=== PATIENT | female | born 1965 | race Caucasian/White ===

== ENCOUNTER 2019-01-08 17:04 | Inpatient (IN) | payer BC ==
[~2019-01-08] VITALS: Ht 167.6 cm; Wt 97.0 kg
[~2019-01-08 17:04] MED LIST: AMLO5TAB13 PO; ATEN50TA PO; DICY10CA12 PO; FARXIGA PO; GABA-339 PO; GLIP-115 PO; MELO1TAB56 PO; OMEP20CA74 PO; SITA100T7 PO; TRAM50TA2 PO
[2019-01-08 17:42] LABS: Urine Bacteria NONE SEEN /hpf (None Seen); Urine Blood TRACE /uL (Negative); Urine Specific Gravity 1.033 (1.001-1.035); Urine WBC 1 /hpf (0 - 5)
[2019-01-08 17:58] LABS: Basophils # (auto) 0 uL; Basophils % (auto) 0.3 % (0.0-2.0); Eosinophils # (auto) 0 uL; Eosinophils % (auto) 0.2 % (0.0-7.0); Hemoglobin 16.5 g/dL (12.2-16.2); Lymphocytes # (auto) 2.2 uL; Mean Corpuscular Volume 90.7 fL (80.0-100.0); Monocytes # (auto) 1.2 uL; Monocytes % (auto) 11.5 % (0.0-12.0); Neutrophils # (auto) 6.9 uL; Nucleated Red Blood Cells % 0.1 %; Platelet Count (auto) 194 10^3/uL (140-450); Red Blood Cells 5.51 10^6/uL (4.0-5.20); White Blood Cell 10.2 10^3/uL (4.4-10.8)
[2019-01-08 18:15] LABS: Albumin 3.5 g/dL (3.4-5.0); Calcium 8.6 mg/dL (8.5-10.1); Potassium 3.9 mmol/L (3.5-5.1)
[2019-01-08 18:20] LABS: BUN/Creatinine Ratio 38.1; Bilirubin, Total 0.6 mg/dL (0.2-1.0); Total Protein 8.3 g/dL (6.4-8.2)
[2019-01-08] MEDS ORDERED: MORPHINE SULFATE 4 MG/ML SYR/VIAL IV ONE (18:45)
[2019-01-08] MEDS ORDERED: ONDANSETRON HCL 4 MG/2 ML VIAL IV ONE (18:45)
[2019-01-08] MEDS ORDERED: ACETAMINOPHEN 500 MG TAB PO PRN (20:30)
[2019-01-08] MEDS ORDERED: DEXTROSE (50%) 50ML SYRG IV PRN (21:00)
[2019-01-08] MEDS: MORPHINE SULF INJ 2 MG/ML SYRINGE 1ML IV PRN (21:30)
[2019-01-08] MEDS: GABAPENTIN 300 MG CAP PO SCH (22:00)
[2019-01-09] MEDS: ACCU-CHEK COMFORT CURVE STRIP VI SCH ×4 (00:04→18:19)
[2019-01-09] MEDS: InsuLIN REG 1unit/0.01ml Soln (100units/ml) SC SCH ×4 (00:13→18:00)
[2019-01-09] MEDS: GABAPENTIN 300 MG CAP PO SCH ×3 (06:00→21:02)
[2019-01-09] MEDS ORDERED: GASTROGRAFIN 120 ML SOL ONE (07:35)
[2019-01-09 08:05] LABS: Basophils # (auto) 0 uL; Basophils % (auto) 0.3 % (0.0-2.0); Eosinophils # (auto) 0.1 uL; Eosinophils % (auto) 1.2 % (0.0-7.0); Hematocrit 48.1 % (36.0-46.0); Hemoglobin 16.2 g/dL (12.2-16.2); Lymphocytes % (auto) 22.3 % (10.0-50.0); Mean Corpuscular Hemoglobin 30.4 pg (28.0-32.0); Mean Corpuscular Hgb Conc. 33.7 g/dL (32.0-36.0); Mean Corpuscular Volume 90.4 fL (80.0-100.0); Monocytes % (auto) 11.1 % (0.0-12.0); Neutrophils # (auto) 5.8 uL; Neutrophils % (auto) 65.1 % (37.0-80.0); Nucleated Red Blood Cells % 0.1 %; Platelet Count (auto) 151 10^3/uL (140-450); Red Blood Cells 5.32 10^6/uL (4.0-5.20); Red Cell Distribution Width 14.1 % (11.8-14.3)
[2019-01-09 08:11] LABS: BUN/Creatinine Ratio 51.9; Calcium 8.4 mg/dL (8.5-10.1); Potassium 3.8 mmol/L (3.5-5.1)
[2019-01-09] MEDS: cefTRIAXone 1GM/50ML D5W 50 ML IV SCH (09:14)
[2019-01-09] MEDS: ONDANSETRON HCL 4 MG/2 ML VIAL IV PRN ×3 (09:14→21:01)
[2019-01-09] MEDS ORDERED: PANTOPRAZOLE 40 MG/10 ML VIAL IV ONE (10:30)
[2019-01-09] MEDS: BENAZEPRIL HCL 10 MG TAB PO SCH (10:44)
[2019-01-09] MEDS: amLODIPine BESYLATE 5 MG TAB PO SCH (10:44)
[2019-01-09] MEDS: ATENOLOL 50 MG TAB PO SCH ×2 (10:46→21:09)
[2019-01-09] MEDS ORDERED: DOCUSATE SOD 100 MG CAP PO PRN (12:30)
[2019-01-09] MEDS ORDERED: LACTULOSE 20Gm/30ML SOLN PO PRN (12:30)
[2019-01-09] MEDS: SODIUM CHLORIDE 0.9% 1,000 ML IV SCH ×2 (13:00→23:43)
--- NOTE | 2019-01-09 15:00 | NUR ---
MS admit from ER FERRON,BERTHA Rosenberg admitted to Telemetry unit after SBAR received. Patient oriented to Aaliyah Reese, primary RN, unit, room, bed, and unit policies regarding patient care and visiting hours. Patient placed on bedside oxygen, weighed by bedscale and encouraged to call if they need something. All questions and concerns addressed, patient verbalized understanding. Note: NG TUBE ATTACHED TO LOW INTERMITTENT SUCTION. NO DRAINAGE NOTED AT THIS TIME
[2019-01-09 15:30] VITALS: BP 141/97
[2019-01-09] MEDS: MORPHINE SULF INJ 2 MG/ML SYRINGE 1ML IV PRN ×2 (15:30→21:02)
--- NOTE | 2019-01-09 15:30 | NUR ---
PT C/O PAIN AND NAUSEA PT WAS GIVEN MORPHINE FOR PAIN AND ZOFRAN, IV, FOR NAUSEA. TOLERATED WELL. NO DISTRESS NOTED. BEDSIDE COMMODE IS PLACED AT BEDSIDE.
--- NOTE | 2019-01-09 15:45 | NUR ---
ORDER TO DC NGT RECEIVED AND CARRIED OUT. PT REQUESTED ICE CHIPS AND WATER. TOLERATED WELL.
--- NOTE | 2019-01-09 16:44 | NUR ---
MS admit from [facility],BERTHA Rosenberg admitted to Telemetry unit after SBAR received. Patient oriented to Aaliyah Reese, primary RN, unit, room, bed, and unit policies regarding patient care and visiting hours. Patient placed on bedside oxygen, weighed by bedscale and encouraged to call if they need something. All questions and concerns addressed, patient verbalized understanding. Note: NG TUBE ATTACHED TO LOW INTERMITTENT SUCTION. NO DRAINAGE NOTED AT THIS TIME Addendum: 01/09/19 at 1646 by Aaliyah Reese RN DUPLICATE NOTE. WRONG TIME.
[2019-01-09 17:00] VITALS: BP 119/81
--- NOTE | 2019-01-09 18:00 | NUR ---
BLOOD SUGAR 156 INSULIN HELD. PT IS ON CLEAR LIQUID DIET ONLY AND WOULD LIKE TO SEE HOW THE NEXT BLOOD SUGAR LEVEL WILL BE TONIGHT
--- NOTE | 2019-01-09 20:07 | NUR ---
CLOSING NOTES PT RESTING. DENIES PAIN, NAUSEA OR VOMITING. VERBALIZED COMFORT. ENDORSED CARE TO RAMESH MURGUIA RN.
[2019-01-09] MEDS: PANTOPRAZOLE 40 MG/10 ML VIAL IV SCH (21:01)
[2019-01-09 22:00] VITALS: BP 152/71
[2019-01-10 05:00] VITALS: BP 160/72
[2019-01-10] MEDS: GABAPENTIN 300 MG CAP PO SCH ×3 (05:54→21:39)
[2019-01-10] MEDS: MORPHINE SULF INJ 2 MG/ML SYRINGE 1ML IV PRN ×5 (05:55→23:50)
[2019-01-10] MEDS: ACCU-CHEK COMFORT CURVE STRIP VI SCH ×5 (05:55→23:50)
[2019-01-10] MEDS: ONDANSETRON HCL 4 MG/2 ML VIAL IV PRN ×5 (05:55→23:50)
[2019-01-10] MEDS: InsuLIN REG 1unit/0.01ml Soln (100units/ml) SC SCH ×5 (06:01→23:58)
[2019-01-10 07:24] LABS: Potassium 3.2 mmol/L (3.5-5.1)
[2019-01-10 07:29] LABS: BUN/Creatinine Ratio 53.1; Magnesium 2.1 mg/dL (1.6-2.6)
[2019-01-10 07:54] LABS: Basophils # (auto) 0 uL; Basophils % (auto) 0.3 % (0.0-2.0); Eosinophils # (auto) 0.1 uL; Eosinophils % (auto) 0.8 % (0.0-7.0); Hematocrit 46.2 % (36.0-46.0); Hemoglobin 15.4 g/dL (12.2-16.2); Lymphocytes # (auto) 2.2 uL; Lymphocytes % (auto) 22.3 % (10.0-50.0); Mean Corpuscular Hemoglobin 30.1 pg (28.0-32.0); Mean Corpuscular Hgb Conc. 33.2 g/dL (32.0-36.0); Mean Corpuscular Volume 90.4 fL (80.0-100.0); Monocytes % (auto) 10.1 % (0.0-12.0); Neutrophils # (auto) 6.6 uL; Neutrophils % (auto) 66.5 % (37.0-80.0); Nucleated Red Blood Cells % 0.1 %; Platelet Count (auto) 154 10^3/uL (140-450); Red Blood Cells 5.11 10^6/uL (4.0-5.20); Red Cell Distribution Width 14.1 % (11.8-14.3); White Blood Cell 9.9 10^3/uL (4.4-10.8)
--- NOTE | 2019-01-10 08:00 | NUR ---
Opening shift note: Patient is A/O x-4 and laying in bed quietly, call light is within reach and bed in low position with side rails up x-2. Patient is not stating any pain nor discomfort at this time. Patient encouraged to call when she starts to feel pain in attempt to keep her pain controlled. Patient verbalized understanding.
[2019-01-10 08:40] VITALS: BP 144/75
[2019-01-10] MEDS: PANTOPRAZOLE 40 MG/10 ML VIAL IV SCH ×2 (10:30→21:40)
[2019-01-10] MEDS: cefTRIAXone 1GM/50ML D5W 50 ML IV SCH (10:30)
[2019-01-10] MEDS: BENAZEPRIL HCL 10 MG TAB PO SCH (10:36)
[2019-01-10] MEDS: amLODIPine BESYLATE 5 MG TAB PO SCH (10:36)
[2019-01-10] MEDS: ATENOLOL 50 MG TAB PO SCH ×2 (10:37→21:40)
--- NOTE | 2019-01-10 10:39 | NUR ---
Dr. Whatley is at the patient's bedside seeing the patient.
[2019-01-10] MEDS ORDERED: POTASSIUM CHL 20 Meq TABLET PO ONE (11:45)
[2019-01-10] MEDS: SODIUM CHLORIDE 0.9% 1,000 ML IV SCH (12:04)
[2019-01-10 12:50] VITALS: BP 152/88
[2019-01-10 16:48] VITALS: BP 137/79
--- NOTE | 2019-01-10 19:00 | NUR ---
Closing Note: Patient A/O x-4 and not exhibiting any s/s of distress nor discomfort. Care endorsed to Janine Amin RN.
[2019-01-10 21:59] VITALS: BP 140/78
[2019-01-11] MEDS: SODIUM CHLORIDE 0.9% 1,000 ML IV SCH (04:25)
[2019-01-11 04:50] VITALS: BP 136/74
[2019-01-11] MEDS: ACCU-CHEK COMFORT CURVE STRIP VI SCH ×2 (05:16→12:00)
[2019-01-11] MEDS: ONDANSETRON HCL 4 MG/2 ML VIAL IV PRN ×2 (05:16→11:12)
[2019-01-11] MEDS: MORPHINE SULF INJ 2 MG/ML SYRINGE 1ML IV PRN ×2 (05:16→11:12)
[2019-01-11] MEDS: GABAPENTIN 300 MG CAP PO SCH ×2 (05:16→14:00)
[2019-01-11] MEDS: InsuLIN REG 1unit/0.01ml Soln (100units/ml) SC SCH ×2 (05:35→12:00)
[2019-01-11 06:49] LABS: BUN/Creatinine Ratio 32.6; Calcium 8.2 mg/dL (8.5-10.1); Potassium 3.1 mmol/L (3.5-5.1)
--- NOTE | 2019-01-11 08:00 | NUR ---
Opening shift note: Patient A/O x-4 and resting in bed and not stating any pain nor disomfort at this time. Patient encouraged to call if she needs anything.
[2019-01-11 08:42] VITALS: BP 139/87
[2019-01-11] MEDS: amLODIPine BESYLATE 5 MG TAB PO SCH (10:00)
[2019-01-11] MEDS ORDERED: POTASSIUM CHL 20 Meq TABLET PO ONE (11:00)
[2019-01-11] MEDS: ATENOLOL 50 MG TAB PO SCH (11:11)
[2019-01-11] MEDS: PANTOPRAZOLE 40 MG/10 ML VIAL IV SCH (11:11)
[2019-01-11] MEDS: BENAZEPRIL HCL 10 MG TAB PO SCH (11:11)
[2019-01-11 12:04] VITALS: BP 143/78
[2019-01-11 15:08] VITALS: BP 143/78
== END 2019-01-11 15:50 | disposition home or self-care (01) | DRG 389 ==
LOC: ER 17:09 → OVERFLOW 21:01 → CENTRAL 01-09 14:53
PROVIDERS: ADMIT Nurse Practitioner Family; ATTEND Internal Medicine
PROC: 0DH67UZ Insertion of Feeding Device into Stomach, Via Natural or Artificial Opening (ICD-10-PCS; principal; 2019-01-09)
DX: K56.699 Other intestinal obstruction unspecified as to partial versus complete obstruction (principal); E87.1 Hypo-osmolality and hyponatremia; E78.5 Hyperlipidemia, unspecified; E11.9 Type 2 diabetes mellitus without complications; E87.6 Hypokalemia; G43.909 Migraine, unspecified, not intractable, without status migrainosus; I10 Essential (primary) hypertension; K59.00 Constipation, unspecified; M54.9 Dorsalgia, unspecified; J44.9 Chronic obstructive pulmonary disease, unspecified; Z85.038 Personal history of other malignant neoplasm of large intestine; Z87.891 Personal history of nicotine dependence; Z90.49 Acquired absence of other specified parts of digestive tract; Z90.710 Acquired absence of both cervix and uterus; Z93.3 Colostomy status; Z79.84 Long term (current) use of oral hypoglycemic drugs; Z79.899 Other long term (current) drug therapy
CPT/HCPCS: 36415; 74018; 74176; 74250; 80048; 80053; 81001; 82150; 82962; 83036; 83690; 83735; 84484; 85025; 93005; 96374; 96375; C9113; G0378; J0696; J1815; J2405

== ENCOUNTER 2022-08-17 16:57 | Emergency (ER) | payer BC ==
[~2022-08-17] VITALS: Ht 170.2 cm; Wt 108.0 kg
[~2022-08-17 16:57] MED LIST changes: +AMLO-489 PO; -AMLO5TAB13 PO; -GLIP-115 PO; +GLIP5TAB12 PO
[2022-08-17] MEDS ORDERED: IBUPROFEN 800 MG TAB PO ONE (18:00)
[2022-08-17 18:52] VITALS: BP 168/82
[2022-08-17] MEDS ORDERED: ONDANSETRON ODT 4 MG TAB PO ONE (19:45)
[2022-08-17] MEDS ORDERED: HYDROcodone-ACET 5/325MG TAB PO ONE (19:45)
== END 2022-08-17 22:55 | disposition home or self-care (01) ==
LOC: ER 16:57
DX: S52.501A Unspecified fracture of the lower end of right radius, initial encounter for closed fracture (principal); S52.601A Unspecified fracture of lower end of right ulna, initial encounter for closed fracture; S63.502A Unspecified sprain of left wrist, initial encounter; S83.92XA Sprain of unspecified site of left knee, initial encounter; I10 Essential (primary) hypertension; E11.9 Type 2 diabetes mellitus without complications; E78.5 Hyperlipidemia, unspecified; J44.9 Chronic obstructive pulmonary disease, unspecified; Z90.710 Acquired absence of both cervix and uterus; Z90.89 Acquired absence of other organs; Z87.891 Personal history of nicotine dependence; Z79.899 Other long term (current) drug therapy; W18.39XA Other fall on same level, initial encounter; Y93.89 Activity, other specified; Y92.89 Other specified places as the place of occurrence of the external cause; Y99.8 Other external cause status
CPT/HCPCS: 29125; 29505; 73110; 73130; 73562; 99284; Q0162

== ENCOUNTER 2023-01-10 12:52 | Inpatient (IN) | payer BC ==
[~2023-01-10] VITALS: Ht 170.2 cm; Wt 101.4 kg
[2023-01-10 13:35] LABS: Basophils # (auto) 0.1 10 ^3/uL (0-0.2); Basophils % (auto) 0.9 % (0.0-2.0); Eosinophils # (auto) 0.1 10 ^3/uL (0-0.8); Hematocrit 46.2 % (36.0-46.0); Hemoglobin 15.6 g/dL (12.2-16.2); Lymphocytes # (auto) 2.9 10 ^3/uL (0.4-5.4); Lymphocytes % (auto) 20.2 % (10.0-50.0); Mean Corpuscular Hemoglobin 29.9 pg (28.0-32.0); Mean Corpuscular Hgb Conc. 33.8 g/dL (32.0-36.0); Mean Corpuscular Volume 88.4 fL (80.0-100.0); Monocytes # (auto) 1.1 10 ^3/uL (0-1.3); Monocytes % (auto) 7.6 % (0.0-12.0); Neutrophils % (auto) 70.3 % (37.0-80.0); Nucleated Red Blood Cells % 0.5 %; Red Blood Cells 5.23 10^6/uL (4.0-5.20); Red Cell Distribution Width 14.2 % (11.8-14.3); White Blood Cell 14.2 10^3/uL (4.4-10.8)
[2023-01-10 13:56] LABS: Urine Bacteria MANY /hpf (None Seen); Urine Blood Negative /uL (Negative); Urine Mucus MODERATE (None Seen); Urine Specific Gravity 1.022 (1.001-1.035); Urine WBC 7 /hpf (0 - 5)
[2023-01-10 14:13] LABS: Albumin 3.2 g/dL (3.4-5.0); Calcium 8.7 mg/dL (8.5-10.1); Potassium 3.5 mmol/L (3.5-5.1)
[2023-01-10 14:18] LABS: BUN/Creatinine Ratio 23.1 (10.0-20.0); Bilirubin, Total 0.5 mg/dL (0.2-1.0)
[2023-01-10] MEDS ORDERED: cefTRIAXone 1GM/50ML D5W 50 ML IV ONE (15:00)
[2023-01-10] MEDS ORDERED: DEXTROSE (50%) 50ML SYRG IV PRN (15:30)
[2023-01-10] MEDS ORDERED: NITROGLYCERIN 0.4 MG SL TAB SL PRN (15:30)
[2023-01-10] MEDS ORDERED: ACETAMINOPHEN 325 MG TAB PO PRN (15:30)
[2023-01-10] MEDS ORDERED: MORPHINE SULFATE INJ 2 MG/ml SYRG IV PRN (15:30)
[2023-01-10 16:10] LABS: Cholesterol 149 mg/dL (< 200)
[2023-01-10 16:13] LABS: HDL Cholesterol 39 mg/dL (40-59); LDL Cholesterol 97 mg/dL (< 100); Triglycerides 141 mg/dL (< 150)
[2023-01-10] MEDS: HYDROcodone-ACET 5/325MG TAB PO PRN ×2 (16:37→22:52)
[2023-01-10] MEDS: ACCU-CHEK COMFORT CURVE STRIP VI SCH ×2 (17:43→22:12)
[2023-01-10] MEDS: InsuLIN REG 1unit/0.01ml Soln (100units/ml) SC SCH ×2 (17:48→22:21)
[2023-01-10] MEDS: DICYCLOMINE HCL 10 MG CAP PO SCH (22:05)
[2023-01-10] MEDS: GABAPENTIN 300 MG CAP PO SCH (22:05)
[2023-01-10] MEDS: ATENOLOL 50 MG TAB PO SCH (22:09)
[2023-01-10] MEDS: ONDANSETRON HCL 4 MG/2 ML VIAL IV PRN (22:11)
[2023-01-10] MEDS: MORPHINE SULFATE INJ 2 MG/ml SYRG IV PRN (22:12)
[2023-01-11] MEDS: MORPHINE SULFATE INJ 2 MG/ml SYRG IV PRN (01:56)
[2023-01-11] MEDS: ONDANSETRON HCL 4 MG/2 ML VIAL IV PRN ×2 (01:56→06:09)
[2023-01-11] MEDS: HYDROcodone-ACET 5/325MG TAB PO PRN ×3 (05:02→14:23)
[2023-01-11 05:14] LABS: Basophils # (auto) 0.1 10 ^3/uL (0-0.2); Basophils % (auto) 0.7 % (0.0-2.0); Eosinophils # (auto) 0 10 ^3/uL (0-0.8); Eosinophils % (auto) 0.3 % (0.0-7.0); Hematocrit 43.6 % (36.0-46.0); Hemoglobin 14.8 g/dL (12.2-16.2); Lymphocytes # (auto) 2.6 10 ^3/uL (0.4-5.4); Lymphocytes % (auto) 20.2 % (10.0-50.0); Mean Corpuscular Hgb Conc. 33.9 g/dL (32.0-36.0); Mean Corpuscular Volume 88.6 fL (80.0-100.0); Monocytes # (auto) 0.9 10 ^3/uL (0-1.3); Monocytes % (auto) 7.2 % (0.0-12.0); Neutrophils # (auto) 9.4 10 ^3/uL (1.6-8.6); Neutrophils % (auto) 71.6 % (37.0-80.0); Nucleated Red Blood Cells % 0.1 %; Red Blood Cells 4.91 10^6/uL (4.0-5.20); Red Cell Distribution Width 14.3 % (11.8-14.3); White Blood Cell 13.1 10^3/uL (4.4-10.8)
[2023-01-11 05:30] LABS: Albumin 2.9 g/dL (3.4-5.0); BUN/Creatinine Ratio 40.9 (10.0-20.0); Calcium 8.8 mg/dL (8.5-10.1); Potassium 3.5 mmol/L (3.5-5.1)
[2023-01-11 05:32] LABS: Bilirubin, Total 0.5 mg/dL (0.2-1.0); Total Protein 8.1 g/dL (6.4-8.2)
[2023-01-11] MEDS: GABAPENTIN 300 MG CAP PO SCH ×3 (06:09→21:16)
[2023-01-11] MEDS: InsuLIN REG 1unit/0.01ml Soln (100units/ml) SC SCH ×3 (06:50→16:25)
[2023-01-11] MEDS: ACCU-CHEK COMFORT CURVE STRIP VI SCH ×4 (07:06→21:20)
[2023-01-11] MEDS: amLODIPine BESYLATE 5 MG TAB PO SCH (08:47)
[2023-01-11] MEDS: ATENOLOL 50 MG TAB PO SCH ×2 (08:47→21:16)
[2023-01-11] MEDS: DICYCLOMINE HCL 10 MG CAP PO SCH (08:47)
[2023-01-11] MEDS ORDERED: cefTRIAXone 1GM/50ML D5W 50 ML IV SCH (09:00)
[2023-01-11] MEDS: ENOXAPARIN SOD 40 MG/0.4 ML SYRINGE SC SCH (09:24)
[2023-01-11] MEDS ORDERED: DEXTROSE (50%) 50ML SYRG IV PRN (12:45)
[2023-01-11] MEDS ORDERED: GADOTERATE MEG 10 MMOL/20ml INJ (0.5MMOL/ml) IV ONE (12:49)
[2023-01-11 13:49] VITALS: BP 189/75
[2023-01-11] MEDS: hydrALAZINE HCL 20 MG/ML VL IV PRN (14:49)
[2023-01-11 17:00] VITALS: BP 187/80
[2023-01-11] MEDS: PIPERACILLIN-TAZOB 3.375GM 100 ML IV SCH (17:52)
[2023-01-11 20:00] VITALS: BP 186/78
[2023-01-11] MEDS: HYDROmorphone HCL 2 MG/ML VL/or syr IV PRN (21:12)
[2023-01-11] MEDS: PREGABALIN 25 MG CAP PO SCH (21:15)
[2023-01-11 22:00] VITALS: BP 186/78
[2023-01-11] MEDS ORDERED: InsuLIN REG 1unit/0.01ml Soln (100units/ml) SC SCH (22:00)
[2023-01-12] MEDS: PIPERACILLIN-TAZOB 3.375GM 100 ML IV SCH ×4 (00:26→15:58)
[2023-01-12] MEDS: HYDROcodone-ACET 5/325MG TAB PO PRN ×3 (04:47→19:00)
[2023-01-12 05:00] VITALS: BP 137/67
[2023-01-12 06:16] LABS: Basophils # (auto) 0.1 10 ^3/uL (0-0.2); Basophils % (auto) 0.4 % (0.0-2.0); Eosinophils # (auto) 0.1 10 ^3/uL (0-0.8); Eosinophils % (auto) 0.5 % (0.0-7.0); Hematocrit 44.1 % (36.0-46.0); Hemoglobin 14.5 g/dL (12.2-16.2); Lymphocytes # (auto) 2.8 10 ^3/uL (0.4-5.4); Lymphocytes % (auto) 16.7 % (10.0-50.0); Mean Corpuscular Hgb Conc. 32.9 g/dL (32.0-36.0); Mean Corpuscular Volume 88.1 fL (80.0-100.0); Monocytes # (auto) 1.6 10 ^3/uL (0-1.3); Monocytes % (auto) 9.3 % (0.0-12.0); Neutrophils # (auto) 12.3 10 ^3/uL (1.6-8.6); Neutrophils % (auto) 73.1 % (37.0-80.0); Nucleated Red Blood Cells % 0.1 %; Red Cell Distribution Width 14.2 % (11.8-14.3); White Blood Cell 16.9 10^3/uL (4.4-10.8)
[2023-01-12] MEDS: GABAPENTIN 300 MG CAP PO SCH ×3 (06:25→21:54)
[2023-01-12] MEDS: InsuLIN REG 1unit/0.01ml Soln (100units/ml) SC SCH ×4 (06:32→21:55)
[2023-01-12] MEDS: ACCU-CHEK COMFORT CURVE STRIP VI SCH ×4 (06:32→21:54)
[2023-01-12 06:38] LABS: Potassium 3.1 mmol/L (3.5-5.1)
[2023-01-12 06:49] LABS: Albumin 2.8 g/dL (3.4-5.0); BUN/Creatinine Ratio 38.2 (10.0-20.0); Bilirubin, Total 0.8 mg/dL (0.2-1.0); Calcium 8.7 mg/dL (8.5-10.1); Total Protein 7.8 g/dL (6.4-8.2)
[2023-01-12] MEDS ORDERED: DEXTROSE (50%) 50ML SYRG IV PRN (08:45)
[2023-01-12] MEDS ORDERED: POTASSIUM EFFERVESENT TAB 25 MEQ PO ONE (08:45)
[2023-01-12 09:38] VITALS: BP 146/75
[2023-01-12] MEDS: ENOXAPARIN SOD 40 MG/0.4 ML SYRINGE SC SCH (10:00)
[2023-01-12 10:25] LABS: INR 1.18 (0.9-1.15); Partial Thromboplastin Time 27.6 sec (24.6-33.4)
[2023-01-12] MEDS: ONDANSETRON HCL 4 MG/2 ML VIAL IV PRN ×3 (10:35→21:02)
[2023-01-12] MEDS: HYDROmorphone HCL 2 MG/ML VL/or syr IV PRN ×3 (10:37→21:02)
[2023-01-12] MEDS: amLODIPine BESYLATE 5 MG TAB PO SCH (10:38)
[2023-01-12] MEDS: DULoxetine HCL 30 MG CAP PO SCH (10:38)
[2023-01-12] MEDS: ATENOLOL 50 MG TAB PO SCH ×2 (10:39→21:54)
[2023-01-12] MEDS: PREGABALIN 25 MG CAP PO SCH ×2 (10:56→21:53)
[2023-01-12] MEDS: hydrALAZINE HCL 20 MG/ML VL IV PRN (12:01)
[2023-01-12 14:01] VITALS: BP 175/82
[2023-01-12 16:38] VITALS: BP 116/63
[2023-01-12 20:56] LABS: Urine Bacteria NONE SEEN /hpf (None Seen); Urine Blood Negative /uL (Negative); Urine Mucus FEW (None Seen); Urine Specific Gravity 1.038 (1.001-1.035); Urine WBC 2 /hpf (0 - 5)
[2023-01-12 22:00] VITALS: BP 105/61
[2023-01-13] MEDS: HYDROcodone-ACET 5/325MG TAB PO PRN (00:04)
[2023-01-13] MEDS: PIPERACILLIN-TAZOB 3.375GM 100 ML IV SCH ×2 (00:04→06:04)
[2023-01-13] MEDS: ONDANSETRON HCL 4 MG/2 ML VIAL IV PRN ×3 (04:14→23:00)
[2023-01-13] MEDS: HYDROmorphone HCL 2 MG/ML VL/or syr IV PRN ×4 (04:15→23:10)
[2023-01-13 05:00] VITALS: BP 118/69
[2023-01-13 05:35] LABS: Basophils # (auto) 0.1 10 ^3/uL (0-0.2); Basophils % (auto) 0.5 % (0.0-2.0); Eosinophils # (auto) 0.4 10 ^3/uL (0-0.8); Eosinophils % (auto) 2.1 % (0.0-7.0); Hemoglobin 15.3 g/dL (12.2-16.2); Lymphocytes # (auto) 5.8 10 ^3/uL (0.4-5.4); Lymphocytes % (auto) 32.3 % (10.0-50.0); Mean Corpuscular Hemoglobin 29.7 pg (28.0-32.0); Mean Corpuscular Hgb Conc. 33.9 g/dL (32.0-36.0); Mean Corpuscular Volume 87.6 fL (80.0-100.0); Monocytes # (auto) 1.3 10 ^3/uL (0-1.3); Monocytes % (auto) 7.5 % (0.0-12.0); Neutrophils # (auto) 10.2 10 ^3/uL (1.6-8.6); Neutrophils % (auto) 57.6 % (37.0-80.0); Red Blood Cells 5.13 10^6/uL (4.0-5.20); Red Cell Distribution Width 14.1 % (11.8-14.3); White Blood Cell 17.8 10^3/uL (4.4-10.8)
[2023-01-13 06:00] LABS: Albumin 2.9 g/dL (3.4-5.0); Calcium 8.4 mg/dL (8.5-10.1); Potassium 3.7 mmol/L (3.5-5.1)
[2023-01-13] MEDS: GABAPENTIN 300 MG CAP PO SCH ×3 (06:00→22:36)
[2023-01-13 06:05] LABS: BUN/Creatinine Ratio 31.4 (10.0-20.0); Bilirubin, Total 0.6 mg/dL (0.2-1.0); Total Protein 7.5 g/dL (6.4-8.2)
[2023-01-13] MEDS: ACCU-CHEK COMFORT CURVE STRIP VI SCH ×4 (06:05→22:00)
[2023-01-13] MEDS: InsuLIN REG 1unit/0.01ml Soln (100units/ml) SC SCH ×4 (06:08→22:00)
[2023-01-13] MEDS ORDERED: GELATIN 1 SPONGE SIZE 50 TOP ONE (06:22)
[2023-01-13] MEDS ORDERED: LIDOCAINE 2% (LOCAL ANESTH.) PF 5ml SDV ONE (06:23)
[2023-01-13] MEDS ORDERED: fentaNYL CITRATE 100 MCG/2 ML VL ONE (07:46)
[2023-01-13] MEDS ORDERED: MIDAZOLAM HCL 2MG/2ML 2ml VIAL (1mg/ml) ONE (07:46)
[2023-01-13] MEDS: PREGABALIN 25 MG CAP PO SCH ×2 (09:06→22:37)
[2023-01-13] MEDS: ENOXAPARIN SOD 40 MG/0.4 ML SYRINGE SC SCH (09:06)
[2023-01-13] MEDS: ATENOLOL 50 MG TAB PO SCH ×2 (09:11→22:37)
[2023-01-13] MEDS: DULoxetine HCL 30 MG CAP PO SCH (09:12)
[2023-01-13] MEDS: amLODIPine BESYLATE 5 MG TAB PO SCH (09:12)
[2023-01-13] MEDS ORDERED: INSULIN LANTUS (GLARGINE) 1 /0.01ml (100units/ml) SC SCH (10:00)
[2023-01-13] MEDS: DIPHENOXYLATE W/ATROPINE 2.5 MG TAB PO PRN ×2 (11:53→23:01)
[2023-01-13] MEDS: hydrALAZINE HCL 20 MG/ML VL IV PRN (11:54)
[2023-01-13] MEDS: MEROPENEM 1GM IVPB 100 ML IV SCH ×2 (12:57→22:00)
[2023-01-13 13:53] VITALS: BP 173/91
[2023-01-13 17:39] VITALS: BP 103/54
[2023-01-13 22:00] VITALS: BP 128/72
[2023-01-14] MEDS: HYDROmorphone HCL 2 MG/ML VL/or syr IV PRN ×4 (04:54→22:25)
[2023-01-14] MEDS: ONDANSETRON HCL 4 MG/2 ML VIAL IV PRN ×3 (04:54→22:20)
[2023-01-14] MEDS: DIPHENOXYLATE W/ATROPINE 2.5 MG TAB PO PRN (04:55)
[2023-01-14 05:00] VITALS: BP 142/70
[2023-01-14] MEDS: GABAPENTIN 300 MG CAP PO SCH ×3 (06:34→22:01)
[2023-01-14] MEDS: MEROPENEM 1GM IVPB 100 ML IV SCH ×3 (06:39→22:08)
[2023-01-14] MEDS: InsuLIN REG 1unit/0.01ml Soln (100units/ml) SC SCH ×4 (06:45→22:00)
[2023-01-14] MEDS: ACCU-CHEK COMFORT CURVE STRIP VI SCH ×4 (06:45→22:02)
[2023-01-14 08:47] VITALS: BP 130/69
[2023-01-14] MEDS ORDERED: FLUCONAZOLE 100 MG TAB PO ONE (09:30)
[2023-01-14] MEDS ORDERED: CHOLESTYRAMINE 4 GM POWDER PO ONE (09:45)
[2023-01-14] MEDS: ENOXAPARIN SOD 40 MG/0.4 ML SYRINGE SC SCH (09:58)
[2023-01-14] MEDS: DULoxetine HCL 30 MG CAP PO SCH (10:00)
[2023-01-14] MEDS: ATENOLOL 50 MG TAB PO SCH ×2 (10:01→22:07)
[2023-01-14] MEDS: PREGABALIN 25 MG CAP PO SCH ×2 (10:01→22:01)
[2023-01-14] MEDS: amLODIPine BESYLATE 5 MG TAB PO SCH (10:01)
[2023-01-14 10:21] LABS: Potassium 3.4 mmol/L (3.5-5.1)
[2023-01-14] MEDS: INSULIN LANTUS (GLARGINE) 1 /0.01ml (100units/ml) SC SCH (10:22)
[2023-01-14 10:37] LABS: BUN/Creatinine Ratio 28.8 (10.0-20.0)
[2023-01-14 10:41] LABS: Basophils # (auto) 0.1 10 ^3/uL (0-0.2); Basophils % (auto) 0.5 % (0.0-2.0); Eosinophils # (auto) 0.2 10 ^3/uL (0-0.8); Eosinophils % (auto) 1.6 % (0.0-7.0); Lymphocytes # (auto) 2.2 10 ^3/uL (0.4-5.4); Lymphocytes % (auto) 16.2 % (10.0-50.0); Mean Corpuscular Hemoglobin 29.5 pg (28.0-32.0); Mean Corpuscular Hgb Conc. 33.3 g/dL (32.0-36.0); Mean Corpuscular Volume 88.8 fL (80.0-100.0); Monocytes # (auto) 1.2 10 ^3/uL (0-1.3); Monocytes % (auto) 9.1 % (0.0-12.0); Neutrophils % (auto) 72.6 % (37.0-80.0); Nucleated Red Blood Cells % 0.1 %; Red Blood Cells 4.73 10^6/uL (4.0-5.20); Red Cell Distribution Width 14.5 % (11.8-14.3); White Blood Cell 13.8 10^3/uL (4.4-10.8)
[2023-01-14] MEDS ORDERED: SOD CHL 0.9%/ KCL 40MEQ 1,000 ML IV ONE (12:00)
[2023-01-14 12:30] VITALS: BP 114/66
[2023-01-14 17:01] VITALS: BP 148/71
[2023-01-14] MEDS: OXYCODONE W/ ACETAMINOPHEN 5/325MG TABLET PO PRN (18:31)
[2023-01-14 22:00] VITALS: BP 124/74
[2023-01-15] MEDS: OXYCODONE W/ ACETAMINOPHEN 5/325MG TABLET PO PRN ×4 (02:11→21:18)
[2023-01-15 05:00] VITALS: BP 121/75
[2023-01-15] MEDS: HYDROmorphone HCL 2 MG/ML VL/or syr IV PRN ×2 (05:29→22:59)
[2023-01-15] MEDS: ONDANSETRON HCL 4 MG/2 ML VIAL IV PRN ×2 (05:30→22:17)
[2023-01-15] MEDS: ACCU-CHEK COMFORT CURVE STRIP VI SCH ×4 (06:29→21:21)
[2023-01-15] MEDS: GABAPENTIN 300 MG CAP PO SCH ×3 (06:29→21:19)
[2023-01-15] MEDS: MEROPENEM 1GM IVPB 100 ML IV SCH ×3 (06:30→21:50)
[2023-01-15] MEDS: InsuLIN REG 1unit/0.01ml Soln (100units/ml) SC SCH ×4 (06:41→21:34)
[2023-01-15 09:00] VITALS: BP 155/79
[2023-01-15] MEDS: DULoxetine HCL 30 MG CAP PO SCH (09:55)
[2023-01-15] MEDS: amLODIPine BESYLATE 5 MG TAB PO SCH (09:55)
[2023-01-15] MEDS: ATENOLOL 50 MG TAB PO SCH ×2 (09:56→21:19)
[2023-01-15] MEDS: FLUCONAZOLE 100 MG TAB PO SCH (09:56)
[2023-01-15] MEDS: PREGABALIN 25 MG CAP PO SCH ×2 (09:56→21:40)
[2023-01-15] MEDS: ENOXAPARIN SOD 40 MG/0.4 ML SYRINGE SC SCH (10:00)
[2023-01-15] MEDS: INSULIN LANTUS (GLARGINE) 1 /0.01ml (100units/ml) SC SCH (10:00)
[2023-01-15] MEDS: hydrALAZINE HCL 20 MG/ML VL IV PRN ×2 (12:03→22:04)
[2023-01-15 17:00] VITALS: BP 143/69
[2023-01-15 22:00] VITALS: BP 168/82
[2023-01-16 05:00] VITALS: BP 141/75
[2023-01-16] MEDS: MEROPENEM 1GM IVPB 100 ML IV SCH ×3 (05:29→21:36)
[2023-01-16] MEDS: GABAPENTIN 300 MG CAP PO SCH ×3 (05:30→21:38)
[2023-01-16] MEDS: OXYCODONE W/ ACETAMINOPHEN 5/325MG TABLET PO PRN ×2 (05:39→14:06)
[2023-01-16] MEDS: ONDANSETRON HCL 4 MG/2 ML VIAL IV PRN ×2 (05:39→11:18)
[2023-01-16] MEDS: ACCU-CHEK COMFORT CURVE STRIP VI SCH ×4 (05:59→21:40)
[2023-01-16] MEDS: InsuLIN REG 1unit/0.01ml Soln (100units/ml) SC SCH ×4 (06:01→21:47)
[2023-01-16 06:29] LABS: Basophils # (auto) 0.1 10 ^3/uL (0-0.2); Basophils % (auto) 0.6 % (0.0-2.0); Eosinophils # (auto) 0.1 10 ^3/uL (0-0.8); Eosinophils % (auto) 0.9 % (0.0-7.0); Hematocrit 43.6 % (36.0-46.0); Hemoglobin 14.5 g/dL (12.2-16.2); Lymphocytes # (auto) 2.3 10 ^3/uL (0.4-5.4); Lymphocytes % (auto) 15.7 % (10.0-50.0); Mean Corpuscular Hemoglobin 29.5 pg (28.0-32.0); Mean Corpuscular Hgb Conc. 33.3 g/dL (32.0-36.0); Mean Corpuscular Volume 88.4 fL (80.0-100.0); Monocytes % (auto) 7.2 % (0.0-12.0); Neutrophils # (auto) 10.9 10 ^3/uL (1.6-8.6); Neutrophils % (auto) 75.6 % (37.0-80.0); Nucleated Red Blood Cells % 0.1 %; Red Blood Cells 4.94 10^6/uL (4.0-5.20); Red Cell Distribution Width 13.9 % (11.8-14.3); White Blood Cell 14.4 10^3/uL (4.4-10.8)
[2023-01-16 09:00] VITALS: BP 133/71
[2023-01-16] MEDS ORDERED: DOCUSATE SOD 100 MG CAP PO ONE (09:45)
[2023-01-16] MEDS ORDERED: DOCUSATE SOD 100 MG CAP PO SCH (10:00)
[2023-01-16] MEDS: oxyCODONE ER 10 MG TAB PO SCH ×2 (10:27→21:39)
[2023-01-16] MEDS: HYDROmorphone HCL 2 MG/ML VL/or syr IV PRN ×2 (11:35→15:38)
[2023-01-16] MEDS: INSULIN LANTUS (GLARGINE) 1 /0.01ml (100units/ml) SC SCH (12:15)
[2023-01-16] MEDS: DULoxetine HCL 30 MG CAP PO SCH (12:27)
[2023-01-16] MEDS: FLUCONAZOLE 100 MG TAB PO SCH (12:28)
[2023-01-16] MEDS: PREGABALIN 25 MG CAP PO SCH ×2 (12:31→21:37)
[2023-01-16] MEDS: amLODIPine BESYLATE 5 MG TAB PO SCH (12:33)
[2023-01-16] MEDS: ATENOLOL 50 MG TAB PO SCH ×2 (12:34→21:39)
[2023-01-16] MEDS: ENOXAPARIN SOD 40 MG/0.4 ML SYRINGE SC SCH (12:36)
[2023-01-16 13:05] VITALS: BP 199/82
[2023-01-16 17:00] VITALS: BP 115/62
[2023-01-16] MEDS: DOCUSATE SOD 100 MG CAP PO SCH (21:38)
[2023-01-16 22:00] VITALS: BP 106/80
[2023-01-17] MEDS: OXYCODONE W/ ACETAMINOPHEN 5/325MG TABLET PO PRN ×3 (01:14→18:20)
[2023-01-17 04:56] VITALS: BP 131/76
[2023-01-17] MEDS: GABAPENTIN 300 MG CAP PO SCH ×3 (06:21→21:53)
[2023-01-17] MEDS: MEROPENEM 1GM IVPB 100 ML IV SCH ×3 (06:21→21:52)
[2023-01-17] MEDS: ACCU-CHEK COMFORT CURVE STRIP VI SCH ×4 (06:33→21:55)
[2023-01-17] MEDS: InsuLIN REG 1unit/0.01ml Soln (100units/ml) SC SCH ×4 (06:34→22:01)
[2023-01-17 09:00] VITALS: BP 162/79
[2023-01-17] MEDS: PREGABALIN 25 MG CAP PO SCH ×2 (10:32→21:53)
[2023-01-17] MEDS: amLODIPine BESYLATE 5 MG TAB PO SCH (10:33)
[2023-01-17] MEDS: DOCUSATE SOD 100 MG CAP PO SCH ×2 (10:33→21:54)
[2023-01-17] MEDS: ATENOLOL 50 MG TAB PO SCH ×2 (10:33→21:54)
[2023-01-17] MEDS: FLUCONAZOLE 100 MG TAB PO SCH (10:33)
[2023-01-17] MEDS: oxyCODONE ER 10 MG TAB PO SCH ×2 (10:33→21:54)
[2023-01-17] MEDS: ENOXAPARIN SOD 40 MG/0.4 ML SYRINGE SC SCH (10:34)
[2023-01-17] MEDS: INSULIN LANTUS (GLARGINE) 1 /0.01ml (100units/ml) SC SCH (10:39)
[2023-01-17] MEDS: DULoxetine HCL 30 MG CAP PO SCH (12:00)
[2023-01-17 12:47] VITALS: BP 142/72
[2023-01-17 17:00] VITALS: BP 126/57
[2023-01-17] MEDS ORDERED: LACTULOSE 20Gm/30ML SOLN PO ONE (19:15)
[2023-01-17 22:00] VITALS: BP 126/71
[2023-01-17] MEDS ORDERED: LACTULOSE 20Gm/30ML SOLN PO SCH (22:00)
[2023-01-18] MEDS: OXYCODONE W/ ACETAMINOPHEN 5/325MG TABLET PO PRN ×4 (00:11→20:19)
[2023-01-18 05:00] VITALS: BP 140/79
[2023-01-18 05:29] LABS: Basophils # (auto) 0.1 10 ^3/uL (0-0.2); Basophils % (auto) 0.7 % (0.0-2.0); Eosinophils # (auto) 0.3 10 ^3/uL (0-0.8); Eosinophils % (auto) 2.3 % (0.0-7.0); Hematocrit 41.3 % (36.0-46.0); Hemoglobin 13.9 g/dL (12.2-16.2); Lymphocytes % (auto) 22.7 % (10.0-50.0); Mean Corpuscular Hemoglobin 29.5 pg (28.0-32.0); Mean Corpuscular Hgb Conc. 33.7 g/dL (32.0-36.0); Mean Corpuscular Volume 87.4 fL (80.0-100.0); Monocytes # (auto) 1.4 10 ^3/uL (0-1.3); Monocytes % (auto) 10.6 % (0.0-12.0); Neutrophils # (auto) 8.4 10 ^3/uL (1.6-8.6); Neutrophils % (auto) 63.7 % (37.0-80.0); Nucleated Red Blood Cells % 0.2 %; Red Blood Cells 4.73 10^6/uL (4.0-5.20); Red Cell Distribution Width 14.4 % (11.8-14.3); White Blood Cell 13.2 10^3/uL (4.4-10.8)
[2023-01-18 05:50] LABS: BUN/Creatinine Ratio 53.8 (10.0-20.0); Calcium 8.4 mg/dL (8.5-10.1); Potassium 3.7 mmol/L (3.5-5.1)
[2023-01-18] MEDS: MEROPENEM 1GM IVPB 100 ML IV SCH (06:14)
[2023-01-18] MEDS: GABAPENTIN 300 MG CAP PO SCH ×3 (06:15→21:57)
[2023-01-18] MEDS: ONDANSETRON HCL 4 MG/2 ML VIAL IV PRN (06:15)
[2023-01-18] MEDS: ACCU-CHEK COMFORT CURVE STRIP VI SCH ×4 (06:32→21:56)
[2023-01-18] MEDS: InsuLIN REG 1unit/0.01ml Soln (100units/ml) SC SCH ×4 (06:33→22:01)
[2023-01-18 09:00] VITALS: BP 180/105
[2023-01-18] MEDS: oxyCODONE ER 10 MG TAB PO SCH ×3 (09:09→21:58)
[2023-01-18] MEDS ORDERED: MORPHINE SULFATE INJ 2 MG/ml SYRG IV ONE (10:15)
[2023-01-18] MEDS: amLODIPine BESYLATE 5 MG TAB PO SCH (12:00)
[2023-01-18] MEDS: ENOXAPARIN SOD 40 MG/0.4 ML SYRINGE SC SCH (12:00)
[2023-01-18] MEDS: INSULIN LANTUS (GLARGINE) 1 /0.01ml (100units/ml) SC SCH (12:00)
[2023-01-18] MEDS: DOCUSATE SOD 100 MG CAP PO SCH ×2 (12:00→21:57)
[2023-01-18] MEDS: PREGABALIN 25 MG CAP PO SCH ×2 (12:00→21:57)
[2023-01-18] MEDS: DULoxetine HCL 30 MG CAP PO SCH (12:00)
[2023-01-18 13:00] VITALS: BP 161/86
[2023-01-18] MEDS: LACTULOSE 20Gm/30ML SOLN PO SCH ×2 (13:16→21:56)
[2023-01-18 17:00] VITALS: BP 110/68
[2023-01-18 22:00] VITALS: BP 123/66
[2023-01-19] MEDS: OXYCODONE W/ ACETAMINOPHEN 5/325MG TABLET PO PRN ×3 (02:49→13:37)
[2023-01-19 05:00] VITALS: BP 115/64
[2023-01-19 06:08] LABS: Potassium 3.7 mmol/L (3.5-5.1)
[2023-01-19] MEDS: ACCU-CHEK COMFORT CURVE STRIP VI SCH ×2 (06:14→12:26)
[2023-01-19 06:18] LABS: Albumin 2.6 g/dL (3.4-5.0); Bilirubin, Total 0.6 mg/dL (0.2-1.0); Calcium 8.4 mg/dL (8.5-10.1); Total Protein 6.5 g/dL (6.4-8.2)
[2023-01-19] MEDS: InsuLIN REG 1unit/0.01ml Soln (100units/ml) SC SCH ×2 (06:20→12:28)
[2023-01-19] MEDS: GABAPENTIN 300 MG CAP PO SCH ×2 (06:23→13:36)
[2023-01-19 08:00] VITALS: BP 156/84
[2023-01-19 08:30] VITALS: BP 156/84
[2023-01-19] MEDS: DOCUSATE SOD 100 MG CAP PO SCH (09:20)
[2023-01-19] MEDS: DULoxetine HCL 30 MG CAP PO SCH (09:20)
[2023-01-19] MEDS: amLODIPine BESYLATE 5 MG TAB PO SCH (09:21)
[2023-01-19] MEDS: PREGABALIN 25 MG CAP PO SCH (09:21)
[2023-01-19] MEDS: ENOXAPARIN SOD 40 MG/0.4 ML SYRINGE SC SCH (09:27)
[2023-01-19] MEDS: LACTULOSE 20Gm/30ML SOLN PO SCH (09:29)
[2023-01-19] MEDS: INSULIN LANTUS (GLARGINE) 1 /0.01ml (100units/ml) SC SCH (10:07)
[2023-01-19] MEDS: oxyCODONE ER 10 MG TAB PO SCH (10:08)
[2023-01-19] MEDS ORDERED: DOCU-94 PO (10:26)
[2023-01-19] MEDS ORDERED: ONDA-144 PO (10:26)
[2023-01-19] MEDS ORDERED: PERCOT PO (10:26)
[2023-01-19] MEDS ORDERED: OXY10CRT PO ×3 (10:26→15:06)
[2023-01-19 11:42] VITALS: BP 136/70
[2023-01-19 14:20] VITALS: BP 136/70
== END 2023-01-19 15:30 | disposition home or self-care (01) | DRG 872 ==
LOC: ER 12:52 → OVERFLOW 15:29 → EAST 01-11 13:14
PROVIDERS: ADMIT Registered Nurse; ATTEND Nurse Practitioner Acute Care
PROC: 0FB13ZX Excision of Right Lobe Liver, Percutaneous Approach, Diagnostic (ICD-10-PCS; principal; 2023-01-13)
DX: A41.9 Sepsis, unspecified organism (principal); N30.01 Acute cystitis with hematuria; C78.7 Secondary malignant neoplasm of liver and intrahepatic bile duct; C20 Malignant neoplasm of rectum; E66.01 Morbid (severe) obesity due to excess calories; E78.5 Hyperlipidemia, unspecified; G89.4 Chronic pain syndrome; I10 Essential (primary) hypertension; J44.9 Chronic obstructive pulmonary disease, unspecified; K59.00 Constipation, unspecified; M06.9 Rheumatoid arthritis, unspecified; E11.42 Type 2 diabetes mellitus with diabetic polyneuropathy; M19.90 Unspecified osteoarthritis, unspecified site; Z20.822 Contact with and (suspected) exposure to COVID-19; Z83.3 Family history of diabetes mellitus; Z82.49 Family history of ischemic heart disease and other diseases of the circulatory system; Z80.3 Family history of malignant neoplasm of breast; Z80.0 Family history of malignant neoplasm of digestive organs; Z80.1 Family history of malignant neoplasm of trachea, bronchus and lung; Z68.36 Body mass index [BMI] 36.0-36.9, adult
CPT/HCPCS: 10005; 36415; 74176; 74183; 76705; 77012; 80048; 80053; 80061; 81001; 82105; 82378; 82962; 83036; 84132; 84443; 84484; 85025; 85610; 85730; 87040; 87086; 87088; 87426; G0378; J0696; J1815; J2001; J2185; J2250; J2405; J2543

== ENCOUNTER 2023-03-20 10:35 | Inpatient (IN) | payer BC ==
[~2023-03-20] VITALS: Ht 170.2 cm; Wt 100.0 kg
[~2023-03-20 10:35] MED LIST changes: -AMLO-489 PO; +AMLO1TAB22 PO; +DOCU-94 PO; +MELO-335 PO; -MELO1TAB56 PO; +ONDA-144 PO; +OXY10CRT PO; +PERCOT PO
[2023-03-20] MEDS ORDERED: HYDROmorphone HCL 2 MG/ML VL/or syr IM ONE (10:45)
[2023-03-20] MEDS ORDERED: ONDANSETRON HCL 4 MG/2 ML VIAL IV ONE ×2 (10:45→15:15)
[2023-03-20] MEDS ORDERED: ACCU-CHEK COMFORT CURVE STRIP VI ONE (10:45)
[2023-03-20 11:08] LABS: Basophils # (auto) 0.1 10 ^3/uL (0-0.2); Basophils % (auto) 0.5 % (0.0-2.0); Eosinophils # (auto) 0.1 10 ^3/uL (0-0.8); Eosinophils % (auto) 0.4 % (0.0-7.0); Hematocrit 38.5 % (36.0-46.0); Hemoglobin 12.7 g/dL (12.2-16.2); Lymphocytes # (auto) 1.9 10 ^3/uL (0.4-5.4); Mean Corpuscular Hgb Conc. 33.1 g/dL (32.0-36.0); Mean Corpuscular Volume 84.5 fL (80.0-100.0); Monocytes # (auto) 0.4 10 ^3/uL (0-1.3); Monocytes % (auto) 2.2 % (0.0-12.0); Neutrophils % (auto) 85.9 % (37.0-80.0); Red Blood Cells 4.56 10^6/uL (4.0-5.20); Red Cell Distribution Width 16.8 % (11.8-14.3); White Blood Cell 17.5 10^3/uL (4.4-10.8)
[2023-03-20 11:16] LABS: INR 1.37 (0.9-1.15)
[2023-03-20 11:23] LABS: Albumin 2.1 g/dL (3.4-5.0)
[2023-03-20 11:25] LABS: Acetaminophen < 2.0 ug/mL (10-30); Salicylate 3.1 mg/dL (2.8-20.0)
[2023-03-20 11:27] LABS: Lactic Acid w/Reflex 2.2 mmol/L (0.4-2.0)
[2023-03-20 11:29] LABS: BUN/Creatinine Ratio 31.7 (10.0-20.0); Total Protein 6.9 g/dL (6.4-8.2)
[2023-03-20 11:33] LABS: Potassium 2.9 mmol/L (3.5-5.1)
[2023-03-20] MEDS ORDERED: POTASSIUM EFFERVESENT TAB 25 MEQ GT ONE (11:45)
[2023-03-20 11:46] LABS: Urine Bacteria FEW /hpf (None Seen); Urine Blood TRACE /uL (Negative); Urine Mucus FEW (None Seen); Urine Specific Gravity 1.028 (1.001-1.035); Urine WBC 2 /hpf (0 - 5)
[2023-03-20 12:08] LABS: Alcohol, Urine < 3.0 mg/dL (0-10); Amphetamine Screen, Urine NEGATIVE (NEGATIVE); Barbiturate Scree,Urine NEGATIVE (NEGATIVE); Benzodiazephine Screen, Urine NEGATIVE (NEGATIVE); Cannabinoid Screen, Urine POSITIVE (NEGATIVE)
[2023-03-20 12:16] LABS: Cocaine Screen, Urine NEGATIVE (NEGATIVE); Opiate Scree,Urine POSITIVE (NEGATIVE); Phencyclidine Screen, Urine NEGATIVE (NEGATIVE)
[2023-03-20] MEDS ORDERED: levoFLOXacin 750MG 150 ML IV ONE (14:30)
[2023-03-20] MEDS ORDERED: HYDROmorphone HCL 2 MG/ML VL/or syr IV ONE (15:00)
[2023-03-20] MEDS ORDERED: LACTULOSE 20Gm/30ML SOLN PO ONE (16:00)
[2023-03-20] MEDS ORDERED: ONDANSETRON HCL 4 MG/2 ML VIAL IV PRN (16:00)
[2023-03-20] MEDS ORDERED: DOCUSATE SOD 100 MG CAP PO PRN (16:00)
[2023-03-20] MEDS ORDERED: ACETAMINOPHEN 325 MG TAB PO PRN (16:00)
[2023-03-20] MEDS: InsuLIN REG 1unit/0.01ml Soln (100units/ml) SC SCH (17:00)
[2023-03-20] MEDS: ACCU-CHEK COMFORT CURVE STRIP VI SCH ×2 (17:00→22:30)
[2023-03-20] MEDS ORDERED: DEXTROSE (50%) 50ML SYRG IV PRN (17:00)
[2023-03-20] MEDS ORDERED: DULO1CAP6 PO (17:06)
[2023-03-20] MEDS: HYDROcodone-ACET 5/325MG TAB PO PRN (17:23)
[2023-03-20] MEDS ORDERED: InsuLIN REG 1unit/0.01ml Soln (100units/ml) SC SCH (22:00)
[2023-03-20] MEDS: GABAPENTIN 300 MG CAP PO SCH (22:39)
[2023-03-20] MEDS: ATENOLOL 50 MG TAB PO SCH (22:45)
[2023-03-20] MEDS: SODIUM CHLOR 0.9% PF (SALINE LOCK) 10ML VIAL/SYR IV SCH (22:45)
[2023-03-20] MEDS: HYDROmorphone HCL 2 MG/ML VL/or syr IV PRN (22:53)
[2023-03-20] MEDS: glipiZIDE 5 MG TAB PO SCH (22:53)
[2023-03-21] MEDS: HYDROcodone-ACET 5/325MG TAB PO PRN (02:13)
[2023-03-21] MEDS: hydrALAZINE HCL 20 MG/ML VL IV PRN ×2 (03:05→09:05)
[2023-03-21 05:33] LABS: Albumin 2.2 g/dL (3.4-5.0); BUN/Creatinine Ratio 29.8 (10.0-20.0); Bilirubin, Total 0.9 mg/dL (0.2-1.0); Calcium 7.6 mg/dL (8.5-10.1); Total Protein 6.6 g/dL (6.4-8.2)
[2023-03-21 05:34] LABS: Basophils # (auto) 0 10 ^3/uL (0-0.2); Basophils % (auto) 0.3 % (0.0-2.0); Eosinophils # (auto) 0 10 ^3/uL (0-0.8); Eosinophils % (auto) 0.3 % (0.0-7.0); Hematocrit 36.9 % (36.0-46.0); Hemoglobin 12.3 g/dL (12.2-16.2); Lymphocytes # (auto) 1.5 10 ^3/uL (0.4-5.4); Lymphocytes % (auto) 10.1 % (10.0-50.0); Mean Corpuscular Hemoglobin 28.1 pg (28.0-32.0); Mean Corpuscular Hgb Conc. 33.4 g/dL (32.0-36.0); Mean Corpuscular Volume 84.1 fL (80.0-100.0); Monocytes # (auto) 0.4 10 ^3/uL (0-1.3); Monocytes % (auto) 2.4 % (0.0-12.0); Neutrophils # (auto) 13.3 10 ^3/uL (1.6-8.6); Neutrophils % (auto) 86.9 % (37.0-80.0); Nucleated Red Blood Cells % 0.1 %; Red Blood Cells 4.39 10^6/uL (4.0-5.20); Red Cell Distribution Width 16.5 % (11.8-14.3); White Blood Cell 15.4 10^3/uL (4.4-10.8)
[2023-03-21 06:27] LABS: Potassium 2.7 mmol/L (3.5-5.1)
[2023-03-21] MEDS ORDERED: POTASSIUM CHL 20 Meq TABLET PO ONE (06:45)
[2023-03-21] MEDS ORDERED: POTASSIUM CHL 20MEQ/100ML 100 ML IV ONE (06:45)
[2023-03-21] MEDS: SODIUM CHLOR 0.9% PF (SALINE LOCK) 10ML VIAL/SYR IV SCH (06:46)
[2023-03-21] MEDS: GABAPENTIN 300 MG CAP PO SCH (06:46)
[2023-03-21] MEDS: ACCU-CHEK COMFORT CURVE STRIP VI SCH (06:49)
[2023-03-21] MEDS: InsuLIN REG 1unit/0.01ml Soln (100units/ml) SC SCH (07:00)
[2023-03-21] MEDS: HYDROmorphone HCL 2 MG/ML VL/or syr IV PRN (07:15)
[2023-03-21 08:00] VITALS: BP 178/84
[2023-03-21] MEDS ORDERED: PANTOPRAZOLE 40 MG TAB PO SCH (10:00)
[2023-03-21] MEDS ORDERED: amLODIPine BESYLATE 5 MG TAB PO SCH (10:00)
[2023-03-21] MEDS ORDERED: levoFLOXacin 500MG 100 ML IV SCH (10:00)
[2023-03-21] MEDS ORDERED: POTASSIUM EFFERVESENT TAB 25 MEQ PO ONE (10:30)
[2023-03-21] MEDS: glipiZIDE 5 MG TAB PO SCH (10:42)
[2023-03-21] MEDS: ATENOLOL 50 MG TAB PO SCH (10:44)
[2023-03-21] MEDS ORDERED: MORPHINE SULF 30 mg ER tab PO SCH (22:00)
== END 2023-03-21 11:58 | disposition left against medical advice (07) | DRG 918 ==
LOC: ER 10:35 → EDBD 10:35 → TELE 15:59
PROVIDERS: ADMIT Nurse Practitioner Family; ATTEND Nurse Practitioner Family
DX: T40.2X1A Poisoning by other opioids, accidental (unintentional), initial encounter (principal); D68.9 Coagulation defect, unspecified; J44.9 Chronic obstructive pulmonary disease, unspecified; I10 Essential (primary) hypertension; E78.5 Hyperlipidemia, unspecified; K52.9 Noninfective gastroenteritis and colitis, unspecified; K62.89 Other specified diseases of anus and rectum; K76.82 Hepatic encephalopathy; D72.829 Elevated white blood cell count, unspecified; E11.40 Type 2 diabetes mellitus with diabetic neuropathy, unspecified; E87.6 Hypokalemia; E66.9 Obesity, unspecified; T39.1X1A Poisoning by 4-Aminophenol derivatives, accidental (unintentional), initial encounter; Z85.05 Personal history of malignant neoplasm of liver; Z90.710 Acquired absence of both cervix and uterus; Z87.891 Personal history of nicotine dependence; Z93.3 Colostomy status; Z85.048 Personal history of other malignant neoplasm of rectum, rectosigmoid junction, and anus; Z82.49 Family history of ischemic heart disease and other diseases of the circulatory system; Z80.3 Family history of malignant neoplasm of breast; Z80.1 Family history of malignant neoplasm of trachea, bronchus and lung; Z80.0 Family history of malignant neoplasm of digestive organs; Z83.3 Family history of diabetes mellitus; Z83.42 Family history of familial hypercholesterolemia; Y92.89 Other specified places as the place of occurrence of the external cause; Z68.34 Body mass index [BMI] 34.0-34.9, adult
CPT/HCPCS: 36415; 70450; 71045; 74176; 80053; 80307; 80329; 81001; 82140; 82962; 83605; 83880; 84484; 85025; 85610; 87040; 96365; 96372; 96375; G0378; J1815; J1956; J2405; J3480